=== PATIENT | female | born 2000 | race Caucasian/White ===

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

== ENCOUNTER → 2022-05-27 | Outpatient (CLI) | payer OTHER ==
[~2022-05-27] MED LIST changes: -CIPR500T4 PO; +CIPR500T5 PO
== END ==
LOC: LABNPT 18:06
PROVIDERS: ATTEND Registered Nurse Critical Care Medicine
DX: Z01.89 Encounter for other specified special examinations (principal)
CPT/HCPCS: 87077; 87088